=== PATIENT | female | born 1995 | race American Indian/Alaskan Native ===

== ENCOUNTER 2019-04-17 09:09 | Emergency (ER) | payer MEDICAID ==
[~2019-04-17] VITALS: Ht 165.1 cm; Wt 98.3 kg
[~2019-04-17 09:09] MED LIST: NO HOME MEDS; NORCO10T PO
[2019-04-17 09:16] VITALS: BP 123/77
[2019-04-17] MEDS ORDERED: CEPH250T PO (10:32)
== END 2019-04-17 10:47 | disposition home or self-care (01) ==
LOC: ER 09:10
DX: S71.102A Unspecified open wound, left thigh, initial encounter (principal); L02.416 Cutaneous abscess of left lower limb; L03.116 Cellulitis of left lower limb; G89.29 Other chronic pain; F31.9 Bipolar disorder, unspecified; F12.90 Cannabis use, unspecified, uncomplicated; Z72.89 Other problems related to lifestyle; Z79.899 Other long term (current) drug therapy; X58.XXXA Exposure to other specified factors, initial encounter; Y93.89 Activity, other specified; Y92.89 Other specified places as the place of occurrence of the external cause; Y99.8 Other external cause status
CPT/HCPCS: 99283